=== PATIENT | male | born 1950 | race Caucasian/White ===

== ENCOUNTER 2018-03-19 12:01 | Observation (INO) | payer MEDICARE ==
[2018-03-19] MEDS ORDERED: Nitroglycerin 0.4 MG TAB (25 Tab Bottle) ONE (12:19)
[2018-03-19] MEDS ORDERED: Heparin 10,000 UNITS/1 ML VIAL ONE (12:23)
[2018-03-19 12:34] LABS: #Eosinphils 0.1 thou/uL (0.0-0.7); #Lymphocytes 1.4 thou/uL (1.20-3.40); #Monocytes 1.3 thou/uL (0.11-0.59); #Neutrophils 10.9 thou/uL (1.40-6.50); %Basophils 0.3 % (0.0-1.0); %Eosinophils 0.6 % (0.0-10.0); %Lymphocytes 10.2 % (21.0-51.0); %Monocytes 9.7 % (0.0-10.0); %Neutrophils 79.2 % (42.0-75.0); Mean Corpuscular HGB CONC 32.7 g/dL (32.0-36.0); Mean Corpuscular Hemoglobin 27.8 pg (27.0-31.0); Mean Platelet Volume 9.3 fL (7.4-10.4); Platelet Count 247 thou/uL (130-400); RBC Distribution Width 14.3 % (11.5-14.5); Red Blood Cell (RBC) Count 5.76 mill/uL (4.70-6.10); White Blood Cell (WBC) Count 13.8 thou/uL (4.8-10.8)
[2018-03-19 13:00] LABS: ALT (SGPT) 17 U/L (8-55); AST (SGOT) 14 U/L (5-34); Albumin 4.1 g/dL (3.4-4.8); Alkaline Phosphatase 76 U/L (40-150); Anion Gap 11 mmol/L (10-20); BUN (Urea Nitrogen) 21 mg/dL (8.4-25.7); Bilirubin, Total 0.7 mg/dL (0.2-1.2); CK (CPK) 49 U/L (30-200); Calc. Creatinine Clearance 0 mL/min (70-130); Calcium 9.9 mg/dL (7.8-10.44); Carbon Dioxide 24 mmol/L (23-31); Chloride 103 mmol/L (98-107); Estimated GFR-MDRD 39; Globulin 3.2 g/dL (2.4-3.5); Glucose 160 mg/dL (80-115); Potassium 4.4 mmol/L (3.5-5.1); Protein, Total 7.3 g/dL (5.8-8.1); Sodium 134 mmol/L (136-145)
[2018-03-19 13:01] LABS: Troponin I Less than 0.010 ng/mL (< 0.028)
--- NOTE | 2018-03-19 13:45 | RAD ---
RADIOGRAPH CHEST 1 VIEW: HISTORY: 67-year-old male with acute chest pain. FINDINGS: There are no air space densities, pulmonary edema, pneumothorax, or cardiomegaly. The lateral costop hrenic angles are sharp. IMPRESSION: No acute cardiopulmonary findings. pavel [] POS: [facility]
--- NOTE | 2018-03-19 15:30 | CT ---
CTA THORAX UTILIZING IV CONTRAST AND 3D REFORMATTED IMAGING; Date: 03/19/18 INDICATION: Hypertension and chest pain. FINDINGS: No central or segmental pulmonary embolus is evident. There are calcified lymph nodes in the mediasti num. There are mild to moderate calcifications involving the thoracic aorta. There is bibasilar atelectasis. No consolidation, pleural effusion, or pneumothorax is evident. There is a small hiatal hernia. Visualized liver, pancreas, and spleen appear within normal limits. No definite acute osseous abnormality is evident. There is scattered degenerative and osteoarthritic change. IMPRESSION: No central or segmental pulmonary embolus demonstrated. POS: [facility]
[2018-03-19 16:22] LABS: Troponin I Less than 0.010 ng/mL (< 0.028)
[2018-03-19] MEDS ORDERED: Iopamidol 370 76% 100 ML VIAL ONE (16:25)
[2018-03-19] MEDS ORDERED: Ondansetron PF 4 MG/2 ML Vial IVP PRN (16:48)
[2018-03-19] MEDS ORDERED: Acetaminophen 325 MG TAB PO PRN (16:48)
[2018-03-19] MEDS ORDERED: Acetaminophen 650 MG Suppository PR PRN (16:48)
[2018-03-19] MEDS ORDERED: Ondansetron ODT 4 MG TAB PO PRN (16:48)
[2018-03-19] MEDS ORDERED: Enoxaparin Sodium 30 MG/0.3 ML SYRINGE SC SCH (16:48)
[2018-03-19 16:57] VITALS: BMI 33.2
[2018-03-19 17:55] LABS: Troponin I Less than 0.010 ng/mL (< 0.028)
[2018-03-19] MEDS: Carvedilol 6.25 MG TAB PO SCH (18:09)
[2018-03-19 19:26] LABS: Troponin I Less than 0.010 ng/mL (< 0.028)
[2018-03-19] MEDS ORDERED: Nitroglycerin 2% Ointment 1 INCH/1 GM Packet TOP SCH (22:00)
[2018-03-20 01:00] LABS: CKMB 1.1 ng/mL (0-6.6); Troponin I Less than 0.010 ng/mL (< 0.028)
[2018-03-20] MEDS ORDERED: Enoxaparin Sodium 30 MG/0.3 ML SYRINGE SC SCH (02:15)
[2018-03-20 05:25] LABS: #Eosinphils 0.2 thou/uL (0.0-0.7); #Lymphocytes 1.4 thou/uL (1.20-3.40); #Neutrophils 4.7 thou/uL (1.40-6.50); %Basophils 0.4 % (0.0-1.0); %Eosinophils 3.4 % (0.0-10.0); %Monocytes 13.9 % (0.0-10.0); %Neutrophils 63.3 % (42.0-75.0); Hemoglobin 14.5 g/dL (14.0-18.0); Mean Corpuscular HGB CONC 32.1 g/dL (32.0-36.0); Mean Corpuscular Hemoglobin 27.7 pg (27.0-31.0); Mean Corpuscular Volume 86.3 fL (78.0-98.0); Mean Platelet Volume 9.2 fL (7.4-10.4); Platelet Count 205 thou/uL (130-400); RBC Distribution Width 14.2 % (11.5-14.5); Red Blood Cell (RBC) Count 5.22 mill/uL (4.70-6.10); White Blood Cell (WBC) Count 7.4 thou/uL (4.8-10.8)
[2018-03-20 05:38] LABS: Anion Gap 10 mmol/L (10-20); BUN (Urea Nitrogen) 26 mg/dL (8.4-25.7); Calc. Creatinine Clearance 58 mL/min (70-130); Calcium 9.3 mg/dL (7.8-10.44); Carbon Dioxide 26 mmol/L (23-31); Chloride 104 mmol/L (98-107); Estimated GFR-MDRD 34; Glucose 115 mg/dL (80-115); Potassium 4.4 mmol/L (3.5-5.1); Sodium 136 mmol/L (136-145)
[2018-03-20 08:12] VITALS: BP 131/76; TEMP 98.9
[2018-03-20] MEDS ORDERED: Prevnar 13-Val Conj/PF 0.5 ML SYRINGE IM ONE (09:00)
[2018-03-20] MEDS: Carvedilol 6.25 MG TAB PO SCH ×2 (10:43→10:46)
[2018-03-20] MEDS ORDERED: Lisinopril 20 MG TAB PO SCH (12:00)
--- NOTE | 2018-03-21 07:50 | DIS ---
DATE OF ADMISSION: 03/19/2018 DATE OF DISCHARGE: 03/20/2018 PRIMARY CARE PHYSICIAN: Dr. Thornton. DISCHARGE DIAGNOSES: 1. Chest pain. 2. Left shoulder pain. 3. Equivocal EKG. 4. History of hypertension. 5. History of gout. 6. History of gastroesophageal reflux disease. HISTORY: The patient is a 67-year-old male with a history of hypertension. The patient presented to the emergency department complaining of some pain in his left chest and left shoulder area, that was generally dull. Seemed to be worse when lying on his left side. His initial workup was notable for some nonspecific ST elevations and changes, initially concerning for possibility of pericarditis. The patient had substantially elevated blood pressure and tachycardia. His initially blood pressure was documented at 184/150 with pulse of 118 and subsequent 117/74, pulse 111. By the time he left the emergency department, he was 129/74 with a pulse of 90. The patient had received 2 sublingual nitroglycerin, aspirin, and 500 mL of fluid bolus. HOSPITAL COURSE: The patient was admitted to the hospital and he had serial cardiac isoenzymes, which were all negative. He had persistent telemetry monitoring, which was negative. His BP ranged from 105/67 to 131/76. The patient's labs also notable for a creatinine of 1.74 with subsequent of 1.96. The patient reported a baseline of around 1.8. CT angiogram of the chest was unremarkable. The following morning, the patient's vital signs were stable. He reports he has absolutely no chest pain at all and his shoulder is improved, although he has some chronic pain related to that shoulder. He feels like he is at his baseline. I had a long discussion with the patient and his . The patient does not want to stay in the hospital throughout the day today. I did explain the findings of the nonspecific changes on the EKG, which could be concerning for possible occlusive disease versus pericarditis. I recommended the patient have a stress test and echocardiogram and a Cardiology consultation. The patient reported that he had been under a significant amount of stress at work and been working extremely long hours and he believes that his symptoms are likely related to that. The patient strongly prefers to go home and have outpatient followup. We discussed the risks and benefits at length and I believe the patient had fully understand those as thus his . I believe, he is appropriate to make that decision without having to sign out against medical advice. He understands the need for fairly immediate followup. I have recommended he continues on the aspirin. I believe, he is safe to continue with his lisinopril and I will give him nitroglycerin. He is strongly encouraged to follow up should he has any recurrence of symptoms and should he require the nitroglycerin. Otherwise, he understands that he is to call his PCP, Dr. Thornton in [place] [employer], and set up outpatient echocardiogram and stress test as soon as reasonably possible. PHYSICAL EXAMINATION: On the day of discharge; VITAL SIGNS: Temperature is 98.9, pulse 80, respirations 16, O2 saturation 98% on room air, and BP 131/76. GENERAL: The patient is awake, alert, oriented, pleasant, and cooperative. HEART: His heart is regular rate and rhythm. There are no rubs. LUNGS: Clear to auscultation bilaterally. ABDOMEN: Benign. EXTREMITIES: Warm and dry without edema. DISPOSITION: The patient is discharged to home. DIET: He is to be on a heart healthy diet. ACTIVITY: His activity level is as tolerated. MEDICATIONS: He will continue all of his usual home medications. I will add sublingual nitroglycerin 0.4 mg q.5 minutes p.r.n. chest pain. We will also add colchicine 0.6 mg p.o. daily for the small possibility the patient may be having some gout related pericarditis. Again, I discussed the potential for the side effects of these medications and the potential risk for pericarditis given his history of gout. He is adamant that his gout is fairly minimal and rarely gives him problems. He is generally well controlled making pericarditis related to that less likely. He also has complete resolution of his symptoms without intervention and he has no evidence of firm rubs on his exam. The patient is not a good candidate for high-dose antiinflammatories given his renal function. Apparently, it would be logistically very challenging to get an echocardiogram done on the patient timely today at this facility. Therefore, he understands the need to follow up and gets this done promptly as an outpatient. I have reviewed his CT scan personally and I see no evidence of any significant pericardial effusion and no real evidence of pericardial inflammation. The patient understands he is to return to the emergency department should he have any problems prior to the time of his followup with his PCP. Job ID: [id number]
--- NOTE | 2018-03-21 11:29 | PDOC.EVN ---
Event Note - Event Note Event Note: Discussed his case with Dr. Thornton. She is aware of his workup here and the need to set up the outpatient echo and stress test.
--- NOTE | 2018-03-26 14:19 | EKG ---
Test Reason : Blood Pressure : / mmHG Vent. Rate : 110 BPM Atrial Rate : 110 BPM P-R Int : 150 ms QRS Dur : 078 ms QT Int : 314 ms P-R-T Axes : 040 -14 044 degrees QTc Int : [address] elevation consider inferolateral injury or acute infarct Abnormal ECG No reciprocal changes Diffuse ND depression, consider pericarditis Confirmed by REGGIE WALKER MD ([id number]), supervising editor news reel IRVIN CERVANTES ([id number]) on 03/26/2018 2:19:14 PM Referred By: Confirmed By:REGGIE WALKER MD
--- NOTE | 2018-03-26 14:19 | EKG ---
Test Reason : Blood Pressure : / mmHG Vent. Rate : 116 BPM Atrial Rate : 116 BPM P-R Int : 154 ms QRS Dur : 078 ms QT Int : 310 ms P-R-T Axes : 055 -04 034 degrees QTc Int : 430 ms Sinus tachycardia Possible Acute pericarditis Abnormal ECG #[address] elevation/LA Confirmed by AARON BOWENS, REGGIE ([id number]), content editor IRVIN CERVANTES ([id number]) on 03/26/2018 2:19:27 PM Referred By: Confirmed By:REGGIE WALKER MD
--- NOTE | 2018-03-26 14:19 | EKG ---
Test Reason : Blood Pressure : / mmHG Vent. Rate : 097 BPM Atrial Rate : 097 BPM P-R Int : 152 ms QRS Dur : 078 ms QT Int : 328 ms P-R-T Axes : 051 -04 031 degrees QTc Int : 416 ms Normal sinus rhythm Acute pericarditis Abnormal ECG Diffuse MT depression Confirmed by AARON BOWENS, REGGIE ([id number]), photo editor IRVIN CERVANTES ([id number]) on 03/26/2018 2:19:51 PM Referred By: Confirmed By:REGGIE WALKER MD
== END 2018-03-20 12:29 | disposition home or self-care (01) ==
LOC: ERS 12:01 → 2SW 16:47
PROVIDERS: ADMIT Internal Medicine Infectious Disease; ATTEND Internal Medicine Infectious Disease
DX: R07.9 Chest pain, unspecified (principal); M25.512 Pain in left shoulder; I10 Essential (primary) hypertension; M10.9 Gout, unspecified; K21.9 Gastro-esophageal reflux disease without esophagitis; Z79.82 Long term (current) use of aspirin; Z79.899 Other long term (current) drug therapy
CPT/HCPCS: 71045; 71275; 80048; 80053; 82550; 82553 ×3; 83735; 84484 ×3; 85025 ×2; 85379; 90662; 93005; 96372; 99285; G0008; G0378 ×2; 36415; 90471; 96360; 96361; J1644; J1650

== ENCOUNTER 2020-07-11 22:01 | Inpatient (IN) | payer MEDICARE ==
[2020-07-11] MEDS ORDERED: Nitroglycerin 2% Ointment 1 INCH/1 GM Packet ONE (22:44)
[2020-07-11] MEDS ORDERED: Nitroglycerin 0.4 MG TAB 1 EACH ONE (22:44)
[2020-07-11 22:57] LABS: #Basophils 0.1 thou/uL (0.0-0.2); #Eosinphils 0.2 thou/uL (0.0-0.7); #Lymphocytes 1.7 thou/uL (1.20-3.40); #Monocytes 1.1 thou/uL (0.11-0.59); #Neutrophils 8.9 thou/uL (1.40-6.50); %Basophils 0.7 % (0.0-1.0); %Eosinophils 1.6 % (0.0-10.0); %Lymphocytes 13.8 % (21.0-51.0); %Monocytes 9.5 % (0.0-10.0); %Neutrophils 74.4 % (42.0-75.0); Hemoglobin 15.7 g/dL (14.0-18.0); Mean Corpuscular HGB CONC 32.4 g/dL (32.0-36.0); Mean Corpuscular Hemoglobin 27.9 pg (27.0-31.0); Mean Corpuscular Volume 86.1 fL (78.0-98.0); Mean Platelet Volume 9.6 fL (7.4-10.4); Platelet Count 210 thou/uL (130-400); RBC Distribution Width 13.6 % (11.5-14.5); Red Blood Cell (RBC) Count 5.62 mill/uL (4.70-6.10)
[2020-07-11 23:13] LABS: ALT (SGPT) 18 U/L (8-55); AST (SGOT) 16 U/L (5-34); Albumin 3.9 g/dL (3.4-4.8); Alkaline Phosphatase 71 U/L (40-110); Anion Gap 12 mmol/L (10-20); BUN (Urea Nitrogen) 23 mg/dL (8.4-25.7); Bilirubin, Total 0.4 mg/dL (0.2-1.2); Calc. Creatinine Clearance 0 mL/min (70-130); Calcium 9.5 mg/dL (7.8-10.44); Carbon Dioxide 27 mmol/L (23-31); Chloride 103 mmol/L (98-107); Globulin 3.2 g/dL (2.4-3.5); Glucose 139 mg/dL (80-115); Lipase 33 U/L (8-78); Potassium 4.1 mmol/L (3.5-5.1); Protein, Total 7.1 g/dL (5.8-8.1); Sodium 138 mmol/L (136-145)
[2020-07-11] MEDS ORDERED: Aspirin Chewable 81 MG TAB ONE (23:23)
[2020-07-11 23:34] LABS: CKMB 5.2 ng/mL (0-6.6)
[2020-07-11 23:37] LABS: Bacteria/HPF None Seen HPF (None Seen); Bilirubin Negative (Negative); Blood, Urine Trace (Negative); Clarity Clear (Clear); Glucose, Urine (Dipstick) Normal (Negative); Ketone, Urine Negative (Negative); Leukocyte Negative Leu/uL (Negative); Nitrite Negative (Negative); Protein, Urine (Dipstick) 30 mg/dL (Neg-Trace); RBC/HPF 0-3 HPF (0-3); Specific Gravity, Urine 1.015 (1.002-1.036); Squamous Epithelial 0-3 HPF (0-3); Urobilinogen Normal mg/dL (Less than 2); WBC/HPF 0-3 HPF (0-3)
[2020-07-12 00:58] LABS: PTT 33.7 sec (22.9-36.1); Prothrombin Time 13.4 sec (12.0-14.7)
[2020-07-12] MEDS ORDERED: Heparin 10,000 UNITS/ 10 ML VIAL ONE (01:16)
[2020-07-12] MEDS ORDERED: Heparin 25,000 units/D5W 500 ML ONE (01:17)
[2020-07-12] MEDS ORDERED: Morphine 2 MG/ML VIAL SLOW IVP PRN (01:32)
[2020-07-12] MEDS ORDERED: Ondansetron PF 4 MG/2 ML Vial IVP PRN (01:32)
[2020-07-12] MEDS ORDERED: Heparin 10,000 UNITS/ 10 ML VIAL SLOW IVP SCH (01:45)
[2020-07-12 03:26] VITALS: BMI 33.7
[2020-07-12 05:02] LABS: #Basophils 0.1 thou/uL (0.0-0.2); #Eosinphils 0.3 thou/uL (0.0-0.7); #Lymphocytes 2.4 thou/uL (1.20-3.40); #Monocytes 1.1 thou/uL (0.11-0.59); #Neutrophils 6.9 thou/uL (1.40-6.50); %Basophils 0.9 % (0.0-1.0); %Eosinophils 2.9 % (0.0-10.0); %Lymphocytes 22.2 % (21.0-51.0); %Monocytes 10.1 % (0.0-10.0); %Neutrophils 63.9 % (42.0-75.0); Hemoglobin 14.1 g/dL (14.0-18.0); Mean Corpuscular HGB CONC 32.7 g/dL (32.0-36.0); Mean Corpuscular Hemoglobin 28.3 pg (27.0-31.0); Mean Corpuscular Volume 86.5 fL (78.0-98.0); Mean Platelet Volume 10.3 fL (7.4-10.4); Platelet Count 193 thou/uL (130-400); RBC Distribution Width 13.5 % (11.5-14.5); Red Blood Cell (RBC) Count 4.99 mill/uL (4.70-6.10); White Blood Cell (WBC) Count 10.8 thou/uL (4.8-10.8)
[2020-07-12 05:35] LABS: Anion Gap 14 mmol/L (10-20); BUN (Urea Nitrogen) 24 mg/dL (8.4-25.7); Calc. Creatinine Clearance 47 mL/min (70-130); Calcium 8.7 mg/dL (7.8-10.44); Carbon Dioxide 24 mmol/L (23-31); Chloride 103 mmol/L (98-107); Glucose 166 mg/dL (80-115); Potassium 3.5 mmol/L (3.5-5.1); Sodium 137 mmol/L (136-145)
[2020-07-12] MEDS: Acetaminophen 325 MG TAB PO PRN ×2 (07:27→18:25)
[2020-07-12] MEDS: Nitroglycerin 2% Ointment 1 INCH/1 GM Packet TOP SCH ×3 (07:27→21:10)
[2020-07-12] MEDS ORDERED: Famotidine 20 MG TAB PO SCH (09:00)
[2020-07-12 09:34] LABS: Troponin I 4.804 ng/mL (< 0.028)
[2020-07-12] MEDS: Aspirin 81 mg Enteric Coated Tablet PO SCH (10:02)
[2020-07-12 12:50] LABS: Troponin I 6.507 ng/mL (< 0.028)
[2020-07-12] MEDS: Sodium Chloride 0.9% 1,000 ML IV SCH (14:59)
[2020-07-12 17:10] LABS: SARS-CoV-2 PCR NAA for Saliva Not Detected (NotDetected)
[2020-07-12] MEDS: Atorvastatin Calcium 40 MG TAB PO SCH (21:09)
[2020-07-13] MEDS: Heparin 25,000 units/D5W 500 ML IVPB SCH ×2 (00:02→17:09)
[2020-07-13] MEDS: hydrALAZINE 20 MG/ML VIAL SLOW IVP PRN ×2 (00:55→04:42)
[2020-07-13] MEDS: Sodium Chloride 0.9% 1,000 ML IV SCH ×2 (04:35→17:19)
[2020-07-13 04:39] LABS: #Basophils 0.1 thou/uL (0.0-0.2); #Eosinphils 0.2 thou/uL (0.0-0.7); #Lymphocytes 1.7 thou/uL (1.20-3.40); #Monocytes 1.2 thou/uL (0.11-0.59); #Neutrophils 7.2 thou/uL (1.40-6.50); %Basophils 0.6 % (0.0-1.0); %Lymphocytes 16.3 % (21.0-51.0); %Monocytes 11.2 % (0.0-10.0); Hemoglobin 14.5 g/dL (14.0-18.0); Mean Corpuscular HGB CONC 31.5 g/dL (32.0-36.0); Mean Corpuscular Hemoglobin 26.9 pg (27.0-31.0); Mean Corpuscular Volume 85.5 fL (78.0-98.0); Mean Platelet Volume 9.9 fL (7.4-10.4); Platelet Count 183 thou/uL (130-400); RBC Distribution Width 13.8 % (11.5-14.5); White Blood Cell (WBC) Count 10.3 thou/uL (4.8-10.8)
[2020-07-13 05:00] LABS: Anion Gap 14 mmol/L (10-20); BUN (Urea Nitrogen) 19 mg/dL (8.4-25.7); Calc. Creatinine Clearance 59 mL/min (70-130); Calcium 8.5 mg/dL (7.8-10.44); Carbon Dioxide 20 mmol/L (23-31); Cardiac Risk 4.8 (Less than 4.5); Chloride 106 mmol/L (98-107); Cholesterol 162 mg/dl (< 200 Desired); Glucose 107 mg/dL (80-115); HDL Cholesterol 34 mg/dL (>60 Neg Risk); LDL Cholesterol, Calculated 107 mg/dL; Potassium 3.7 mmol/L (3.5-5.1); Sodium 136 mmol/L (136-145); Triglycerides 104 mg/dL (Less than 150)
[2020-07-13] MEDS: Nitroglycerin 2% Ointment 1 INCH/1 GM Packet TOP SCH ×3 (06:10→22:19)
[2020-07-13 07:44] LABS: Critical Call Chem Troponin I @DECREASING; Troponin I 2.556 ng/mL (< 0.028)
[2020-07-13] MEDS: Aspirin 81 mg Enteric Coated Tablet PO SCH (08:52)
[2020-07-13] MEDS ORDERED: Amlodipine 5 MG TAB PO SCH ×2 (09:00→11:30)
[2020-07-13] MEDS: Acetaminophen 325 MG TAB PO PRN ×2 (09:09→13:19)
[2020-07-13] MEDS ORDERED: Aspirin 81 mg Enteric Coated Tablet PO SCH (09:30)
[2020-07-13] MEDS ORDERED: Gabapentin 300 MG CAP PO SCH (09:30)
[2020-07-13 12:48] LABS: Critical Call Chem Troponin I RESULT DECREASING
[2020-07-13 13:10] LABS: CKMB 10.6 ng/mL (0-6.6)
[2020-07-13] MEDS: cloNIDine 0.1 MG TAB PO PRN (13:19)
[2020-07-13] MEDS: Carvedilol 6.25 MG TAB PO SCH (17:05)
[2020-07-13] MEDS: Atorvastatin Calcium 40 MG TAB PO SCH (22:19)
[2020-07-14 05:21] LABS: #Eosinphils 0.3 thou/uL (0.0-0.7); #Lymphocytes 1.8 thou/uL (1.20-3.40); #Monocytes 1.1 thou/uL (0.11-0.59); #Neutrophils 6.3 thou/uL (1.40-6.50); %Basophils 0.3 % (0.0-1.0); %Eosinophils 3.5 % (0.0-10.0); %Lymphocytes 19.1 % (21.0-51.0); %Monocytes 11.7 % (0.0-10.0); %Neutrophils 65.4 % (42.0-75.0); Hemoglobin 13.8 g/dL (14.0-18.0); Mean Corpuscular HGB CONC 32.9 g/dL (32.0-36.0); Mean Corpuscular Hemoglobin 28.2 pg (27.0-31.0); Mean Corpuscular Volume 85.7 fL (78.0-98.0); Mean Platelet Volume 9.9 fL (7.4-10.4); Platelet Count 184 thou/uL (130-400); RBC Distribution Width 13.5 % (11.5-14.5); White Blood Cell (WBC) Count 9.6 thou/uL (4.8-10.8)
[2020-07-14 05:49] LABS: Anion Gap 13 mmol/L (10-20); BUN (Urea Nitrogen) 19 mg/dL (8.4-25.7); Calc. Creatinine Clearance 55 mL/min (70-130); Calcium 8.4 mg/dL (7.8-10.44); Carbon Dioxide 24 mmol/L (23-31); Chloride 105 mmol/L (98-107); Glucose 103 mg/dL (80-115); Magnesium 1.9 mg/dL (1.6-2.6); Potassium 3.8 mmol/L (3.5-5.1); Sodium 138 mmol/L (136-145)
[2020-07-14] MEDS ORDERED: Sodium Chloride 0.9% 1,000 ML IV SCH ×2 (06:00→12:00)
[2020-07-14] MEDS: Nitroglycerin 2% Ointment 1 INCH/1 GM Packet TOP SCH ×3 (06:10→22:00)
[2020-07-14] MEDS ORDERED: Magnesium Sulfate 2 GM in Sodium Chloride 0.9% 100 ML IVPB SCH (08:00)
[2020-07-14] MEDS ORDERED: Potassium Chloride 20 MEQ TAB PO SCH (08:00)
[2020-07-14] MEDS: Aspirin 325 mg Enteric Coated Tablet PO SCH (08:27)
[2020-07-14] MEDS: Amlodipine 10 MG TAB PO SCH (08:27)
[2020-07-14] MEDS: Carvedilol 6.25 MG TAB PO SCH ×2 (08:28→18:07)
[2020-07-14] MEDS: Acetaminophen 325 MG TAB PO PRN (08:34)
[2020-07-14] MEDS: Sodium Chloride 0.9% 1,000 ML IV SCH ×3 (08:35→22:00)
[2020-07-14] MEDS: Gabapentin 300 MG CAP PO SCH (08:36)
[2020-07-14] MEDS ORDERED: Communication Order-Pharmacy FS SCH (16:00)
[2020-07-14] MEDS: Heparin 25,000 units/D5W 500 ML IVPB SCH (18:10)
[2020-07-14] MEDS: Atorvastatin Calcium 40 MG TAB PO SCH (20:02)
[2020-07-14] MEDS: cloNIDine 0.1 MG TAB PO PRN (20:02)
[2020-07-15 04:34] LABS: #Basophils 0.1 thou/uL (0.0-0.2); #Eosinphils 0.3 thou/uL (0.0-0.7); #Lymphocytes 1.6 thou/uL (1.20-3.40); #Monocytes 0.8 thou/uL (0.11-0.59); #Neutrophils 4.4 thou/uL (1.40-6.50); %Eosinophils 4.8 % (0.0-10.0); %Lymphocytes 22.7 % (21.0-51.0); %Monocytes 11.2 % (0.0-10.0); %Neutrophils 60.3 % (42.0-75.0); Hemoglobin 12.9 g/dL (14.0-18.0); Mean Corpuscular HGB CONC 31.5 g/dL (32.0-36.0); Mean Corpuscular Hemoglobin 27.3 pg (27.0-31.0); Mean Corpuscular Volume 86.6 fL (78.0-98.0); Mean Platelet Volume 9.7 fL (7.4-10.4); Platelet Count 167 thou/uL (130-400); RBC Distribution Width 13.7 % (11.5-14.5); Red Blood Cell (RBC) Count 4.74 mill/uL (4.70-6.10); White Blood Cell (WBC) Count 7.2 thou/uL (4.8-10.8)
[2020-07-15 04:50] LABS: Anion Gap 9 mmol/L (10-20); BUN (Urea Nitrogen) 22 mg/dL (8.4-25.7); Calc. Creatinine Clearance 51 mL/min (70-130); Carbon Dioxide 26 mmol/L (23-31); Chloride 106 mmol/L (98-107); Glucose 100 mg/dL (80-115); Potassium 3.8 mmol/L (3.5-5.1); Sodium 137 mmol/L (136-145)
[2020-07-15] MEDS: Sodium Chloride 0.9% 1,000 ML IV SCH ×3 (05:50→17:00)
[2020-07-15] MEDS: Aspirin 325 mg Enteric Coated Tablet PO SCH (05:51)
[2020-07-15] MEDS: Carvedilol 6.25 MG TAB PO SCH ×2 (05:51→16:05)
[2020-07-15] MEDS: Amlodipine 10 MG TAB PO SCH (05:55)
[2020-07-15] MEDS: Gabapentin 300 MG CAP PO SCH (05:56)
[2020-07-15] MEDS: Nitroglycerin 2% Ointment 1 INCH/1 GM Packet TOP SCH ×3 (06:15→14:47)
[2020-07-15] MEDS ORDERED: Aspirin 325 mg Enteric Coated Tablet PO SCH (06:41)
[2020-07-15] MEDS: Aspirin 81 mg Enteric Coated Tablet PO SCH (08:53)
[2020-07-15] MEDS: hydrALAZINE 10 MG TAB PO SCH ×4 (08:54→20:30)
[2020-07-15] MEDS ORDERED: hydrALAZINE 25 MG TAB PO SCH (09:00)
[2020-07-15] MEDS ORDERED: Iopamidol 370 76% 100 ML VIAL ONE (09:16)
[2020-07-15 11:44] LABS: Anion Gap 9 mmol/L (10-20); BUN (Urea Nitrogen) 20 mg/dL (8.4-25.7); Calc. Creatinine Clearance 55 mL/min (70-130); Calcium 8.2 mg/dL (7.8-10.44); Carbon Dioxide 25 mmol/L (23-31); Chloride 108 mmol/L (98-107); Glucose 100 mg/dL (80-115); Potassium 4.1 mmol/L (3.5-5.1); Sodium 138 mmol/L (136-145)
[2020-07-15] MEDS ORDERED: Nitroglycerin 100MG/250ML BOT 250 ML ONE (12:08)
[2020-07-15] MEDS ORDERED: Lidocaine 1% (PF) 30 ML VIAL ONE (12:08)
[2020-07-15] MEDS ORDERED: Adenosine 6 MG/2 ML VIAL ONE (12:08)
[2020-07-15] MEDS ORDERED: Verapamil 5 MG/2 ML VIAL ONE (12:08)
[2020-07-15] MEDS ORDERED: Midazolam HCl 2 mg/2 ml Vial ONE (12:44)
[2020-07-15] MEDS ORDERED: Fentanyl 100 MCG/2 ML VIAL ONE (12:44)
[2020-07-15] MEDS ORDERED: Acetaminophen/Codeine 30-300mg Tablet PO PRN ×2 (13:08)
[2020-07-15] MEDS ORDERED: Sodium Chloride 0.9% 200 ML IV PRN (13:08)
[2020-07-15] MEDS ORDERED: Nitroglycerin 0.4 MG TAB (25 Tab Bottle) SL PRN (13:08)
[2020-07-15] MEDS ORDERED: Sodium Chloride 0.9% 1,000 ML IV SCH (13:15)
[2020-07-15] MEDS: cloNIDine 0.1 MG TAB PO PRN (14:46)
[2020-07-15] MEDS ORDERED: Heparin 25,000 units/D5W 500 ML IVPB SCH (16:00)
[2020-07-15] MEDS ORDERED: Diazepam 5 MG TAB PO PRN (16:09)
[2020-07-15] MEDS ORDERED: Communication Order-Pharmacy FS SCH (16:09)
[2020-07-15] MEDS: Atorvastatin Calcium 40 MG TAB PO SCH (20:29)
[2020-07-16] MEDS: Sodium Chloride 0.9% 1,000 ML IV SCH ×2 (00:56→10:28)
[2020-07-16] MEDS: Nitroglycerin 2% Ointment 1 INCH/1 GM Packet TOP SCH ×3 (00:57→10:29)
[2020-07-16 04:46] LABS: #Eosinphils 0.2 thou/uL (0.0-0.7); #Lymphocytes 1.2 thou/uL (1.20-3.40); #Monocytes 0.9 thou/uL (0.11-0.59); #Neutrophils 5.1 thou/uL (1.40-6.50); %Basophils 0.6 % (0.0-1.0); %Eosinophils 2.8 % (0.0-10.0); %Lymphocytes 16.5 % (21.0-51.0); %Monocytes 11.6 % (0.0-10.0); %Neutrophils 68.5 % (42.0-75.0); Hemoglobin 13.2 g/dL (14.0-18.0); Mean Corpuscular HGB CONC 32.8 g/dL (32.0-36.0); Mean Corpuscular Hemoglobin 28.2 pg (27.0-31.0); Mean Corpuscular Volume 86.1 fL (78.0-98.0); Mean Platelet Volume 10.2 fL (7.4-10.4); Platelet Count 169 thou/uL (130-400); RBC Distribution Width 13.6 % (11.5-14.5); Red Blood Cell (RBC) Count 4.67 mill/uL (4.70-6.10); White Blood Cell (WBC) Count 7.4 thou/uL (4.8-10.8)
[2020-07-16 05:09] LABS: Anion Gap 9 mmol/L (10-20); BUN (Urea Nitrogen) 18 mg/dL (8.4-25.7); Calc. Creatinine Clearance 61 mL/min (70-130); Calcium 7.9 mg/dL (7.8-10.44); Carbon Dioxide 23 mmol/L (23-31); Chloride 110 mmol/L (98-107); Glucose 97 mg/dL (80-115); Potassium 3.9 mmol/L (3.5-5.1); Sodium 138 mmol/L (136-145)
[2020-07-16] MEDS: Carvedilol 6.25 MG TAB PO SCH (05:11)
[2020-07-16] MEDS ORDERED: EPINEPHrine 1 MG/ML AMP ONE (07:38)
[2020-07-16] MEDS ORDERED: Bupivacaine PF 0.5% 30 ML VIAL ONE (07:38)
[2020-07-16] MEDS ORDERED: Albumin 5% 500 ML ONE (07:38)
[2020-07-16] MEDS ORDERED: Dexamethasone 4 mg/ml Vial ONE (08:12)
[2020-07-16] MEDS ORDERED: Heparin 10,000 UNITS/1 ML VIAL 30,000 UNITS in Sodium Chloride 0.9% 1,000 ML FS SCH (08:45)
[2020-07-16] MEDS ORDERED: Midazolam HCl 2 mg/2 ml Vial ONE (09:14)
[2020-07-16] MEDS ORDERED: Dexmedetomidine 200 MCG/2 ML VIAL ONE (09:14)
[2020-07-16] MEDS ORDERED: Midazolam HCl 5 mg/5 ml Vial ONE (09:14)
[2020-07-16] MEDS ORDERED: Fentanyl 100 MCG/2 ML VIAL ONE (09:14)
[2020-07-16] MEDS ORDERED: Vecuronium 10 MG VIAL ONE ×3 (09:14→10:13)
[2020-07-16] MEDS ORDERED: CEFAZOLIN 2 GM in Premix Bag 1 BAG IVPB SCH (10:00)
[2020-07-16] MEDS ORDERED: Nitroglycerin 50 MG/250 ML BOT ONE (10:13)
[2020-07-16] MEDS ORDERED: ePHEDrine 50 MG/ML VIAL ONE (10:13)
[2020-07-16] MEDS ORDERED: Cardioplegic Soln 1,000 ML BAG ONE (10:13)
[2020-07-16] MEDS ORDERED: Dexamethasone 20 MG/5 ML VIAL ONE (10:13)
[2020-07-16] MEDS ORDERED: Ondansetron PF 4 MG/2 ML Vial ONE (10:13)
[2020-07-16] MEDS ORDERED: Aminocaproic Acid 5 GM/20 ML VIAL ONE (10:13)
[2020-07-16] MEDS ORDERED: PHENYLEPHRINE-NS 100 MCG/ML 10 ML SYRINGE ONE (10:13)
[2020-07-16] MEDS ORDERED: Lidocaine 1% PF 5 ML VIAL ONE ×2 (10:13)
[2020-07-16] MEDS ORDERED: Calcium Chloride 1 GM/10 ML Abboject SYRINGE ONE (10:13)
[2020-07-16] MEDS ORDERED: Heparin 30,000 units/30 ml VIAL ONE (10:13)
[2020-07-16] MEDS ORDERED: Ketorolac Tromethamine 30 MG/ML VIAL ONE (10:13)
[2020-07-16] MEDS ORDERED: Magnesium Sulfate 1 GM/2 ML VIAL ONE (10:13)
[2020-07-16] MEDS ORDERED: Sodium Bicarb 50 MEQ/50 ML Abboject 8.4% SYRINGE ONE (10:13)
[2020-07-16] MEDS ORDERED: Heparin 5,000 UNITS/ML VIAL ONE (10:13)
[2020-07-16] MEDS ORDERED: Papaverine 60 MG/2 ML VIAL ONE (10:13)
[2020-07-16] MEDS ORDERED: Lidocaine 2% PF 100 mg/5 ml Syringe ONE (10:13)
[2020-07-16] MEDS ORDERED: Potassium Chloride 60 MEQ/30 ML VIAL ONE (10:13)
[2020-07-16] MEDS ORDERED: Mannitol 12.5 GM/50 ML ONE (10:13)
[2020-07-16] MEDS ORDERED: Thrombin 5000 UNITS/5 ML VIAL ONE (10:13)
[2020-07-16] MEDS: Gabapentin 300 MG CAP PO SCH (10:28)
[2020-07-16] MEDS: hydrALAZINE 10 MG TAB PO SCH ×2 (10:28→13:26)
[2020-07-16] MEDS: Amlodipine 10 MG TAB PO SCH (10:28)
[2020-07-16] MEDS: Aspirin 81 mg Enteric Coated Tablet PO SCH (10:28)
[2020-07-16] MEDS ORDERED: Potassium Chloride 20 MEQ/100 ML PREMIX BAG IVPB PRN (14:11)
[2020-07-16] MEDS ORDERED: Acetaminophen 325 MG TAB PO PRN (14:11)
[2020-07-16] MEDS ORDERED: traMADol HCl 50 MG TAB PO PRN ×2 (14:11)
[2020-07-16] MEDS ORDERED: Bisacodyl 10 MG SUPP PR PRN (14:11)
[2020-07-16] MEDS ORDERED: Promethazine HCl 25 MG/ML VIAL IM PRN (14:11)
[2020-07-16] MEDS ORDERED: Hetastarch 6% 500 ML 500 ML IVPB PRN (14:11)
[2020-07-16] MEDS ORDERED: Bisacodyl 5 MG TAB PO PRN (14:11)
[2020-07-16] MEDS ORDERED: Morphine 2 MG/ML VIAL SLOW IVP PRN (14:11)
[2020-07-16] MEDS ORDERED: Mag-Al 1200 mg/1200 mg/30 ML UDCUP PO PRN (14:11)
[2020-07-16] MEDS ORDERED: Fentanyl 100 MCG/2 ML VIAL SLOW IVP PRN (14:11)
[2020-07-16] MEDS ORDERED: Ondansetron PF 4 MG/2 ML Vial IVP PRN (14:11)
[2020-07-16] MEDS ORDERED: Guaifenesin DM 100-10/5 ML UDCUP PO PRN (14:11)
[2020-07-16] MEDS ORDERED: Norepinephrine 8 MG/0.9% NS 250 ML IVPB PRN (14:11)
[2020-07-16] MEDS ORDERED: Nitroglycerin 50 MG/250 ML BOT 250 ML IVPB PRN (14:11)
[2020-07-16] MEDS ORDERED: Magnesium 2 GM/50 ML 2 GM in Premix Bag 1 BAG IVPB SCH (14:15)
[2020-07-16] MEDS ORDERED: D5 1/2 NS w/20 mEq KCL 1,000 ML IV SCH (14:15)
[2020-07-16] MEDS ORDERED: Dextrose 5% in Water 1,000 ML IV PRN (14:30)
[2020-07-16] MEDS ORDERED: Dextrose 50% Abboject 50 ML SYRINGE SLOW IVP PRN (14:30)
[2020-07-16] MEDS: Insulin Regular 300 UNITS/3 ML VIAL SC PRN ×4 (14:51→23:51)
[2020-07-16 15:04] LABS: INR-International Normal Ratio 1.3; PTT 31.9 sec (22.9-36.1); Prothrombin Time 16.5 sec (12.0-14.7)
[2020-07-16 15:14] LABS: Band 22 % (5-11); Lymphocytes 7 % (21-51); MDiff Complete? YES; Mean Corpuscular HGB CONC 32.6 g/dL (32.0-36.0); Mean Corpuscular Hemoglobin 28.4 pg (27.0-31.0); Mean Platelet Volume 10.1 fL (7.4-10.4); Monocytes 6 % (0-10); Neutrophil 64 % (42-75); Platelet Count 180 thou/uL (130-400); Platelet Morphology Comment Appears Adequate; Polychromasia SLIGHT = 2-3 cells (100X) (0-2/hpf); RBC Distribution Width 13.6 % (11.5-14.5); Reactive Lymphocytes 1 % (0-10); Red Blood Cell (RBC) Count 4.58 mill/uL (4.70-6.10); White Blood Cell (WBC) Count 25.9 thou/uL (4.8-10.8)
[2020-07-16 15:21] LABS: Anion Gap 12 mmol/L (10-20); BUN (Urea Nitrogen) 18 mg/dL (8.4-25.7); Calc. Creatinine Clearance 54 mL/min (70-130); Calcium 7.4 mg/dL (7.8-10.44); Carbon Dioxide 21 mmol/L (23-31); Chloride 110 mmol/L (98-107); Glucose 158 mg/dL (80-115); Potassium 5.9 mmol/L (3.5-5.1); Sodium 137 mmol/L (136-145)
[2020-07-16] MEDS: CEFAZOLIN 2 GM in Premix Bag 1 BAG IVPB SCH ×2 (16:49→23:51)
[2020-07-16] MEDS ORDERED: Dextrose 5 %-0.45 % NaCl 1,000 ML IV SCH (17:00)
[2020-07-16] MEDS: Fentanyl 100 MCG/2 ML VIAL SLOW IVP PRN ×3 (17:04→23:59)
[2020-07-16] MEDS: Atorvastatin Calcium 40 MG TAB PO SCH (19:54)
[2020-07-16 20:03] LABS: Hemoglobin 12.5 g/dL (14.0-18.0)
[2020-07-16 20:17] LABS: Potassium 4.5 mmol/L (3.5-5.1)
[2020-07-16] MEDS ORDERED: Famotidine/PF 20 mg/2ml Vial SLOW IVP SCH (21:00)
[2020-07-16] MEDS: hydrALAZINE 20 MG/ML VIAL SLOW IVP PRN (23:10)
[2020-07-17 03:19] LABS: #Lymphocytes 0.9 thou/uL (1.20-3.40); #Monocytes 1.7 thou/uL (0.11-0.59); #Neutrophils 19.5 thou/uL (1.40-6.50); %Basophils 0.2 % (0.0-1.0); %Monocytes 7.6 % (0.0-10.0); %Neutrophils 88.2 % (42.0-75.0); Hemoglobin 13.1 g/dL (14.0-18.0); Mean Corpuscular HGB CONC 32.4 g/dL (32.0-36.0); Mean Corpuscular Hemoglobin 28.1 pg (27.0-31.0); Mean Corpuscular Volume 86.6 fL (78.0-98.0); Mean Platelet Volume 10.4 fL (7.4-10.4); Platelet Count 172 thou/uL (130-400); RBC Distribution Width 13.8 % (11.5-14.5); Red Blood Cell (RBC) Count 4.65 mill/uL (4.70-6.10); White Blood Cell (WBC) Count 22.1 thou/uL (4.8-10.8)
[2020-07-17] MEDS: Fentanyl 100 MCG/2 ML VIAL SLOW IVP PRN (03:19)
[2020-07-17 03:53] LABS: Chloride 110 mmol/L (98-107)
[2020-07-17 03:54] LABS: Calcium 7.9 mg/dL (7.8-10.44); Glucose 149 mg/dL (80-115); Potassium 4.3 mmol/L (3.5-5.1); Sodium 138 mmol/L (136-145)
[2020-07-17] MEDS: Insulin Regular 300 UNITS/3 ML VIAL SC PRN (03:55)
[2020-07-17 03:56] LABS: Anion Gap 12 mmol/L (10-20); Carbon Dioxide 20 mmol/L (23-31)
[2020-07-17 03:58] LABS: Calc. Creatinine Clearance 53 mL/min (70-130)
[2020-07-17 03:59] LABS: BUN (Urea Nitrogen) 24 mg/dL (8.4-25.7)
[2020-07-17] MEDS: hydrALAZINE 20 MG/ML VIAL SLOW IVP PRN (05:02)
[2020-07-17] MEDS ORDERED: traMADol HCl 50 MG TAB PO PRN (06:51)
[2020-07-17] MEDS ORDERED: Guaifenesin DM 100-10/5 ML UDCUP PO PRN (06:51)
[2020-07-17] MEDS ORDERED: Bisacodyl 10 MG SUPP PR PRN (06:51)
[2020-07-17] MEDS ORDERED: Mag-Al 1200 mg/1200 mg/30 ML UDCUP PO PRN (06:51)
[2020-07-17] MEDS ORDERED: Milk Of Magnesia 30 ML UDCUP PO PRN (06:51)
[2020-07-17] MEDS ORDERED: Zolpidem Tartrate 5 MG TAB PO PRN (06:51)
[2020-07-17] MEDS ORDERED: Nitroglycerin 0.4 MG TAB (25 Tab Bottle) SL PRN (06:51)
[2020-07-17] MEDS ORDERED: Mineral Oil ENEMA PR PRN (06:51)
[2020-07-17] MEDS ORDERED: diphenhydrAMINE 25 MG CAP PO PRN (06:51)
[2020-07-17] MEDS ORDERED: Bisacodyl 5 MG TAB PO PRN (06:51)
[2020-07-17] MEDS: traMADol HCl 50 MG TAB PO PRN ×3 (07:43→22:20)
[2020-07-17] MEDS: Carvedilol 6.25 MG TAB PO SCH ×2 (07:45→20:27)
[2020-07-17] MEDS: Aspirin Chewable 81 MG TAB PO SCH (07:46)
[2020-07-17] MEDS: Gabapentin 300 MG CAP PO SCH (07:46)
[2020-07-17] MEDS ORDERED: Potassium Chloride 10 MEQ TAB PO SCH (08:00)
[2020-07-17] MEDS ORDERED: Magnesium 2 GM/50 ML 2 GM in Premix Bag 1 BAG IVPB SCH (09:00)
[2020-07-17] MEDS ORDERED: Furosemide 40 MG TAB PO SCH (09:00)
[2020-07-17] MEDS: Atorvastatin Calcium 40 MG TAB PO SCH (20:26)
[2020-07-18 06:24] LABS: Anion Gap 11 mmol/L (10-20); BUN (Urea Nitrogen) 33 mg/dL (8.4-25.7); Calc. Creatinine Clearance 42 mL/min (70-130); Calcium 8.1 mg/dL (7.8-10.44); Carbon Dioxide 24 mmol/L (23-31); Chloride 104 mmol/L (98-107); Glucose 133 mg/dL (80-115); Potassium 4.3 mmol/L (3.5-5.1); Sodium 135 mmol/L (136-145)
[2020-07-18] MEDS ORDERED: Allopurinol 300 MG TAB PO SCH (09:00)
[2020-07-18] MEDS ORDERED: Furosemide 40 MG TAB PO SCH (09:00)
[2020-07-18] MEDS: Potassium Chloride 10 MEQ TAB PO SCH ×2 (09:01→17:31)
[2020-07-18] MEDS: Aspirin Chewable 81 MG TAB PO SCH (09:01)
[2020-07-18] MEDS: Carvedilol 6.25 MG TAB PO SCH ×2 (09:02→21:23)
[2020-07-18] MEDS: Cholecalciferol 1,000 UNITS (25 MCG) TAB PO SCH (09:04)
[2020-07-18] MEDS: Cyanocobalamin (Vitamin B-12) 1,000 MCG TAB PO SCH (09:05)
[2020-07-18] MEDS: Gabapentin 300 MG CAP PO SCH (09:07)
[2020-07-18] MEDS: Fish Oil 1,000 MG CAP PO SCH (09:07)
[2020-07-18] MEDS: Amiodarone 450 MG, Admixture Fee 1 EACH in Dextrose 5% in Water 250 ML IVPB SCH (17:00)
[2020-07-18 17:23] LABS: ALT (SGPT) 26 U/L (8-55); AST (SGOT) 23 U/L (5-34); Albumin 3.1 g/dL (3.4-4.8); Alkaline Phosphatase 72 U/L (40-110); Bilirubin, Direct 0.4 mg/dL (0.1-0.3); Bilirubin, Total 0.7 mg/dL (0.2-1.2); Protein, Total 5.5 g/dL (5.8-8.1)
[2020-07-18 17:25] LABS: Anion Gap 11 mmol/L (10-20); BUN (Urea Nitrogen) 38 mg/dL (8.4-25.7); Calc. Creatinine Clearance 39 mL/min (70-130); Calcium 8.3 mg/dL (7.8-10.44); Carbon Dioxide 25 mmol/L (23-31); Chloride 100 mmol/L (98-107); Glucose 198 mg/dL (80-115); Magnesium 2.2 mg/dL (1.6-2.6); Potassium 4.1 mmol/L (3.5-5.1); Sodium 132 mmol/L (136-145)
[2020-07-18] MEDS: Atorvastatin Calcium 40 MG TAB PO SCH (21:23)
[2020-07-19 05:40] LABS: #Eosinphils 0.1 thou/uL (0.0-0.7); #Lymphocytes 1.5 thou/uL (1.20-3.40); #Monocytes 2.3 thou/uL (0.11-0.59); #Neutrophils 12.1 thou/uL (1.40-6.50); %Basophils 0.1 % (0.0-1.0); %Eosinophils 0.6 % (0.0-10.0); %Lymphocytes 9.4 % (21.0-51.0); %Monocytes 14.5 % (0.0-10.0); %Neutrophils 75.4 % (42.0-75.0); Mean Corpuscular HGB CONC 31.9 g/dL (32.0-36.0); Mean Corpuscular Hemoglobin 27.7 pg (27.0-31.0); Mean Corpuscular Volume 86.9 fL (78.0-98.0); Mean Platelet Volume 9.9 fL (7.4-10.4); Platelet Count 170 thou/uL (130-400); RBC Distribution Width 13.8 % (11.5-14.5); Red Blood Cell (RBC) Count 3.98 mill/uL (4.70-6.10)
[2020-07-19 05:55] LABS: Anion Gap 10 mmol/L (10-20); BUN (Urea Nitrogen) 38 mg/dL (8.4-25.7); Calc. Creatinine Clearance 46 mL/min (70-130); Calcium 8.1 mg/dL (7.8-10.44); Carbon Dioxide 24 mmol/L (23-31); Chloride 102 mmol/L (98-107); Glucose 120 mg/dL (80-115); Potassium 4.1 mmol/L (3.5-5.1); Sodium 132 mmol/L (136-145)
[2020-07-19] MEDS: Cholecalciferol 1,000 UNITS (25 MCG) TAB PO SCH (09:19)
[2020-07-19] MEDS: Fish Oil 1,000 MG CAP PO SCH (09:20)
[2020-07-19] MEDS: Cyanocobalamin (Vitamin B-12) 1,000 MCG TAB PO SCH (09:20)
[2020-07-19] MEDS: Carvedilol 6.25 MG TAB PO SCH ×2 (09:22→20:51)
[2020-07-19] MEDS: Gabapentin 300 MG CAP PO SCH (09:23)
[2020-07-19] MEDS: Aspirin Chewable 81 MG TAB PO SCH (09:24)
[2020-07-19] MEDS: Furosemide 40 MG TAB PO SCH (09:24)
[2020-07-19] MEDS ORDERED: Digoxin 0.5 MG/2 ML AMP SLOW IVP SCH (18:30)
[2020-07-19] MEDS: Atorvastatin Calcium 40 MG TAB PO SCH (20:50)
[2020-07-19] MEDS: Amiodarone 200 MG TAB PO SCH (20:51)
[2020-07-19] MEDS: traMADol HCl 50 MG TAB PO PRN (20:52)
[2020-07-20] MEDS ORDERED: Digoxin 0.5 MG/2 ML AMP SLOW IVP SCH ×2 (02:00→08:00)
[2020-07-20] MEDS ORDERED: Digoxin 0.5 MG/2 ML AMP ONE (02:13)
[2020-07-20 04:47] LABS: Anion Gap 12 mmol/L (10-20); BUN (Urea Nitrogen) 37 mg/dL (8.4-25.7); Calc. Creatinine Clearance 48 mL/min (70-130); Calcium 8.3 mg/dL (7.8-10.44); Carbon Dioxide 27 mmol/L (23-31); Chloride 101 mmol/L (98-107); Glucose 125 mg/dL (80-115); Sodium 136 mmol/L (136-145)
[2020-07-20] MEDS: Amiodarone 450 MG, Admixture Fee 1 EACH in Dextrose 5% in Water 250 ML IVPB SCH ×2 (06:19→20:51)
[2020-07-20] MEDS: Aspirin Chewable 81 MG TAB PO SCH (07:52)
[2020-07-20] MEDS ORDERED: Cepastat Lozenges 1 LOZ PO PRN (08:03)
[2020-07-20] MEDS ORDERED: Cepastat Lozenges 1 LOZ PO SCH (08:15)
[2020-07-20] MEDS: Cyanocobalamin (Vitamin B-12) 1,000 MCG TAB PO SCH (08:15)
[2020-07-20] MEDS: Carvedilol 6.25 MG TAB PO SCH ×2 (08:16→20:50)
[2020-07-20] MEDS: Fish Oil 1,000 MG CAP PO SCH (08:16)
[2020-07-20] MEDS: Gabapentin 300 MG CAP PO SCH (08:17)
[2020-07-20] MEDS: Furosemide 40 MG TAB PO SCH (08:17)
[2020-07-20] MEDS: Cholecalciferol 1,000 UNITS (25 MCG) TAB PO SCH (08:17)
[2020-07-20] MEDS: Amiodarone 200 MG TAB PO SCH ×2 (08:19→20:50)
[2020-07-20] MEDS: Atorvastatin Calcium 40 MG TAB PO SCH (20:50)
[2020-07-20] MEDS: traMADol HCl 50 MG TAB PO PRN (21:11)
[2020-07-21 04:25] LABS: #Eosinphils 0.4 thou/uL (0.0-0.7); #Lymphocytes 1.6 thou/uL (1.20-3.40); #Monocytes 1.6 thou/uL (0.11-0.59); #Neutrophils 8.3 thou/uL (1.40-6.50); %Basophils 0.3 % (0.0-1.0); %Eosinophils 3.2 % (0.0-10.0); %Lymphocytes 13.7 % (21.0-51.0); %Monocytes 13.6 % (0.0-10.0); %Neutrophils 69.2 % (42.0-75.0); Mean Corpuscular HGB CONC 33.2 g/dL (32.0-36.0); Mean Corpuscular Hemoglobin 28.7 pg (27.0-31.0); Mean Corpuscular Volume 86.4 fL (78.0-98.0); Mean Platelet Volume 9.5 fL (7.4-10.4); Platelet Count 257 thou/uL (130-400); RBC Distribution Width 13.3 % (11.5-14.5); Red Blood Cell (RBC) Count 3.82 mill/uL (4.70-6.10)
[2020-07-21 04:47] LABS: Anion Gap 14 mmol/L (10-20); BUN (Urea Nitrogen) 37 mg/dL (8.4-25.7); Calc. Creatinine Clearance 49 mL/min (70-130); Calcium 8.4 mg/dL (7.8-10.44); Carbon Dioxide 25 mmol/L (23-31); Chloride 98 mmol/L (98-107); Glucose 120 mg/dL (80-115); Potassium 3.8 mmol/L (3.5-5.1); Sodium 133 mmol/L (136-145)
[2020-07-21] MEDS: Furosemide 40 MG TAB PO SCH (08:59)
[2020-07-21] MEDS: Amiodarone 200 MG TAB PO SCH ×2 (08:59→20:14)
[2020-07-21] MEDS: Carvedilol 6.25 MG TAB PO SCH ×2 (09:00→20:12)
[2020-07-21] MEDS: Aspirin Chewable 81 MG TAB PO SCH (09:00)
[2020-07-21] MEDS: Cholecalciferol 1,000 UNITS (25 MCG) TAB PO SCH (09:01)
[2020-07-21] MEDS: Gabapentin 300 MG CAP PO SCH (09:01)
[2020-07-21] MEDS: Fish Oil 1,000 MG CAP PO SCH (09:01)
[2020-07-21] MEDS: Cyanocobalamin (Vitamin B-12) 1,000 MCG TAB PO SCH (09:02)
[2020-07-21] MEDS: Atorvastatin Calcium 40 MG TAB PO SCH (20:14)
[2020-07-21] MEDS ORDERED: Carvedilol 25 MG TAB PO SCH ×2 (20:15→21:00)
[2020-07-22 05:22] LABS: Anion Gap 12 mmol/L (10-20); BUN (Urea Nitrogen) 34 mg/dL (8.4-25.7); Calc. Creatinine Clearance 48 mL/min (70-130); Calcium 8.5 mg/dL (7.8-10.44); Carbon Dioxide 28 mmol/L (23-31); Chloride 99 mmol/L (98-107); Glucose 115 mg/dL (80-115); Potassium 3.9 mmol/L (3.5-5.1); Sodium 135 mmol/L (136-145)
[2020-07-22] MEDS: Furosemide 40 MG TAB PO SCH (08:37)
[2020-07-22] MEDS: Amiodarone 200 MG TAB PO SCH (08:38)
[2020-07-22] MEDS: Cholecalciferol 1,000 UNITS (25 MCG) TAB PO SCH (08:39)
[2020-07-22] MEDS: Cyanocobalamin (Vitamin B-12) 1,000 MCG TAB PO SCH (08:39)
[2020-07-22] MEDS: Aspirin Chewable 81 MG TAB PO SCH (08:39)
[2020-07-22] MEDS: Gabapentin 300 MG CAP PO SCH (08:43)
[2020-07-22] MEDS: Fish Oil 1,000 MG CAP PO SCH (08:43)
[2020-07-22] MEDS ORDERED: Digoxin 0.125 MG TAB PO SCH (09:00)
[2020-07-22] MEDS ORDERED: Carvedilol 25 MG TAB PO SCH (09:00)
[2020-07-22 11:19] VITALS: TEMP 98.6
[2020-07-22 12:10] VITALS: BP 140/74
[2020-07-22] MEDS ORDERED: Apixaban 5 MG TAB PO SCH (21:00)
[2020-07-29 14:59] LABS: Actual Bicarbonate (HCO3a) 22.5 mEq/L (22-28); Analyzer IN Cardio OR; Base Excess (BEa) -2.7 mEq/L (-2.0 to +3.0); CO2 Tension 40.6 mmHg (35.0-45.0); Calcium, Ionized (arterial) 1.13 mmol/L (1.12-1.30); Carboxyhemoglobin (COHb) 0.9 gm% (0.0-3.0); Hemoglobin (Hb) 13.9 g/dL (14.0-18.0); O2 Tension (PaO2), arterial 98.2 mmHg (> 80.0); Potassium - ABG Lab 4.12 mmol/L (3.70-5.30); pH, Arterial 7.36 (7.35-7.45)
[2020-07-29 15:00] LABS: Actual Bicarbonate (HCO3a) 23.3 mEq/L (22-28); Analyzer IN Cardio OR; Base Excess (BEa) -3.1 mEq/L (-2.0 to +3.0); CO2 Tension 46.8 mmHg (35.0-45.0); Calcium, Ionized (arterial) 1.12 mmol/L (1.12-1.30); Carboxyhemoglobin (COHb) 1.1 gm% (0.0-3.0); Hemoglobin (Hb) 13.3 g/dL (14.0-18.0); O2 Tension (PaO2), arterial 93.5 mmHg (> 80.0); pH, Arterial 7.32 (7.35-7.45)
[2020-07-29 15:00] LABS: Actual Bicarbonate (HCO3a) 22.1 mEq/L (22-28); Analyzer IN Cardio OR; Base Excess (BEa) -4.3 mEq/L (-2.0 to +3.0); CO2 Tension 46.1 mmHg (35.0-45.0); Carboxyhemoglobin (COHb) 0.3 gm% (0.0-3.0); Hemoglobin (Hb) 11.8 g/dL (14.0-18.0); O2 Tension (PaO2), arterial 204.7 mmHg (> 80.0); Potassium - ABG Lab 4.63 mmol/L (3.70-5.30)
[2020-07-29 15:01] LABS: Actual Bicarbonate (HCO3a) 24.8 mEq/L (22-28); Analyzer IN Cardio OR; CO2 Tension 40.9 mmHg (35.0-45.0); Calcium, Ionized (arterial) 1.02 mmol/L (1.12-1.30); Carboxyhemoglobin (COHb) 0.4 gm% (0.0-3.0); Hemoglobin (Hb) 11.1 g/dL (14.0-18.0); O2 Tension (PaO2), arterial 337.3 mmHg (> 80.0); Potassium - ABG Lab 6.34 mmol/L (3.70-5.30)
[2020-07-29 15:03] LABS: Actual Bicarbonate (HCO3a) 23.8 mEq/L (22-28); Analyzer IN Cardio OR; Base Excess (BEa) -1.3 mEq/L (-2.0 to +3.0); CO2 Tension 41.5 mmHg (35.0-45.0); Calcium, Ionized (arterial) 0.98 mmol/L (1.12-1.30); Carboxyhemoglobin (COHb) 0.3 gm% (0.0-3.0); O2 Tension (PaO2), arterial 466.4 mmHg (> 80.0); Potassium - ABG Lab 6.87 mmol/L (3.70-5.30); pH, Arterial 7.38 (7.35-7.45)
[2020-07-29 15:04] LABS: Actual Bicarbonate (HCO3a) 21.1 mEq/L (22-28); Analyzer IN Cardio OR; Base Excess (BEa) -4.5 mEq/L (-2.0 to +3.0); Calcium, Ionized (arterial) 1.08 mmol/L (1.12-1.30); Carboxyhemoglobin (COHb) 0.4 gm% (0.0-3.0); Hemoglobin (Hb) 12.1 g/dL (14.0-18.0); O2 Tension (PaO2), arterial 498.8 mmHg (> 80.0); Potassium - ABG Lab 6.23 mmol/L (3.70-5.30); pH, Arterial 7.33 (7.35-7.45)
[2020-07-29 15:04] LABS: Actual Bicarbonate (HCO3a) 22.4 mEq/L (22-28); Analyzer IN Cardio OR; CO2 Tension 41.5 mmHg (35.0-45.0); Calcium, Ionized (arterial) 1.11 mmol/L (1.12-1.30); Carboxyhemoglobin (COHb) 0.5 gm% (0.0-3.0); O2 Tension (PaO2), arterial 72.2 mmHg (> 80.0); Potassium - ABG Lab 6.44 mmol/L (3.70-5.30); pH, Arterial 7.35 (7.35-7.45)
[2020-07-29 15:10] LABS: Puncture Site Arterial Line
[2020-07-29 15:11] LABS: Puncture Site Arterial Line
[2020-07-29 15:11] LABS: Puncture Site Arterial Line
[2020-07-29 15:12] LABS: Puncture Site Arterial Line
[2020-07-29 15:12] LABS: Puncture Site Arterial Line
[2020-07-29 15:13] LABS: Puncture Site Arterial Line
[2020-07-29 15:13] LABS: Puncture Site Arterial Line
[2020-07-30] MEDS ORDERED: Amiodarone 200 MG TAB PO SCH (09:00)
== END 2020-07-22 14:36 | disposition home or self-care (01) | DRG 234 ==
LOC: ERS 22:01 → 2NO 07-12 00:40 → CCU 07-16 09:29 → 2NO 07-17 23:48
PROVIDERS: ADMIT Internal Medicine; ATTEND Internal Medicine
PROC: 4A023N7 Measurement of Cardiac Sampling and Pressure, Left Heart, Percutaneous Approach (ICD-10-PCS; 2020-07-12)
PROC: B2111ZZ Fluoroscopy of Multiple Coronary Arteries using Low Osmolar Contrast (ICD-10-PCS; 2020-07-12)
PROC: 02100Z9 Bypass Coronary Artery, One Artery from Left Internal Mammary, Open Approach (ICD-10-PCS; principal; 2020-07-16)
PROC: 021209W Bypass Coronary Artery, Three Arteries from Aorta with Autologous Venous Tissue, Open Approach (ICD-10-PCS; 2020-07-16)
PROC: 06BQ4ZZ Excision of Left Saphenous Vein, Percutaneous Endoscopic Approach (ICD-10-PCS; 2020-07-16)
PROC: 5A1221Z Performance of Cardiac Output, Continuous (ICD-10-PCS; 2020-07-16)
DX: I21.4 Non-ST elevation (NSTEMI) myocardial infarction (principal); N17.9 Acute kidney failure, unspecified; I48.3 Typical atrial flutter; E87.1 Hypo-osmolality and hyponatremia; I12.9 Hypertensive chronic kidney disease with stage 1 through stage 4 chronic kidney disease, or unspecified chronic kidney disease; K21.9 Gastro-esophageal reflux disease without esophagitis; I16.0 Hypertensive urgency; M10.9 Gout, unspecified; D72.829 Elevated white blood cell count, unspecified; G89.4 Chronic pain syndrome; E66.9 Obesity, unspecified; E78.5 Hyperlipidemia, unspecified; E87.8 Other disorders of electrolyte and fluid balance, not elsewhere classified; Z20.822 Contact with and (suspected) exposure to COVID-19; I25.110 Atherosclerotic heart disease of native coronary artery with unstable angina pectoris; N18.30 Chronic kidney disease, stage 3 unspecified; G44.40 Drug-induced headache, not elsewhere classified, not intractable; E87.5 Hyperkalemia; I48.0 Paroxysmal atrial fibrillation; E88.09 Other disorders of plasma-protein metabolism, not elsewhere classified; T46.3X5A Adverse effect of coronary vasodilators, initial encounter; Z79.82 Long term (current) use of aspirin; Z87.891 Personal history of nicotine dependence; Z68.33 Body mass index [BMI] 33.0-33.9, adult
CPT/HCPCS: 36415; 36416; 36430; 71045; 76942; 80048; 80053; 80061; 80076; 81003; 81015; 82553; 82805; 83690; 83735; 83880; 84443; 84484; 85025; 85347; 85610; 85730; 86850; 86900; 86901; 87635; 93005; 93010; 93306; 93458; 93798; 96365; 96376; 99152; 99153; J0153; J0171; J0282; J0360; J0690; J1100; J1160; J1642; J1644; J1815; J1885; J2001; J2150; J2250; J2270; J2405; J2440; J3010; J3370; J3475; J3480; J3490; J7070; P9045; Q9967; S0017; S0020; S0028; U0003; U0005

== ENCOUNTER 2020-07-25 19:14 | Inpatient (IN) | payer MEDICARE, OTHER ==
[2020-07-25 20:13] LABS: #Eosinphils 0.1 thou/uL (0.0-0.7); #Lymphocytes 1.2 thou/uL (1.20-3.40); #Monocytes 1.7 thou/uL (0.11-0.59); #Neutrophils 13.7 thou/uL (1.40-6.50); %Basophils 0.3 % (0.0-1.0); %Eosinophils 0.6 % (0.0-10.0); %Monocytes 10.4 % (0.0-10.0); %Neutrophils 81.8 % (42.0-75.0); Hemoglobin 11.6 g/dL (14.0-18.0); Mean Corpuscular Hemoglobin 27.4 pg (27.0-31.0); Mean Corpuscular Volume 85.6 fL (78.0-98.0); Mean Platelet Volume 9.3 fL (7.4-10.4); Platelet Count 372 thou/uL (130-400); RBC Distribution Width 13.3 % (11.5-14.5); Red Blood Cell (RBC) Count 4.23 mill/uL (4.70-6.10); White Blood Cell (WBC) Count 16.7 thou/uL (4.8-10.8)
[2020-07-25 20:33] LABS: ALT (SGPT) 65 U/L (8-55); AST (SGOT) 53 U/L (5-34); Albumin 3.1 g/dL (3.4-4.8); Alkaline Phosphatase 217 U/L (40-110); Anion Gap 13 mmol/L (10-20); BUN (Urea Nitrogen) 39 mg/dL (8.4-25.7); Bilirubin, Total 0.9 mg/dL (0.2-1.2); Calc. Creatinine Clearance 0 mL/min (70-130); Calcium 8.5 mg/dL (7.8-10.44); Carbon Dioxide 29 mmol/L (23-31); Chloride 95 mmol/L (98-107); Globulin 3.1 g/dL (2.4-3.5); Glucose 152 mg/dL (80-115); Potassium 4.5 mmol/L (3.5-5.1); Protein, Total 6.2 g/dL (5.8-8.1); Sodium 132 mmol/L (136-145)
[2020-07-25] MEDS ORDERED: Vancomycin 1 GM/200 ML BAG ONE (20:38)
[2020-07-25] MEDS ORDERED: cefTRIAXone\\ROCEPHIN 2 GM VIAL ONE (20:38)
[2020-07-25 21:06] LABS: Bilirubin Negative (Negative); Blood, Urine Trace (Negative); Clarity Clear (Clear); Glucose, Urine (Dipstick) Normal (Negative); Ketone, Urine Negative (Negative); Leukocyte Negative Leu/uL (Negative); Nitrite Negative (Negative); Protein, Urine (Dipstick) 30 mg/dL (Neg-Trace); RBC/HPF 0-3 HPF (0-3); Specific Gravity, Urine 1.018 (1.002-1.036); Squamous Epithelial 0-3 HPF (0-3); Urobilinogen Normal mg/dL (Less than 2); pH, Urine 5.5 (5.0-9.0)
[2020-07-25 21:07] LABS: Bacteria/HPF 1+ HPF (None Seen)
[2020-07-25] MEDS ORDERED: Morphine 4 MG/ML VIAL ONE (21:46)
[2020-07-25] MEDS ORDERED: Carvedilol 25 MG TAB PO SCH (22:00)
[2020-07-25] MEDS ORDERED: Atorvastatin Calcium 40 MG TAB PO SCH (22:00)
[2020-07-25] MEDS ORDERED: Apixaban 5 MG TAB PO SCH (22:00)
[2020-07-25] MEDS ORDERED: Amiodarone 200 MG TAB PO SCH (22:00)
[2020-07-26] MEDS ORDERED: Ondansetron PF 4 MG/2 ML Vial IVP PRN (00:39)
[2020-07-26] MEDS ORDERED: Acetaminophen 325 MG TAB PO PRN (00:39)
[2020-07-26 01:48] LABS: #Eosinphils 0.2 thou/uL (0.0-0.7); #Lymphocytes 1.1 thou/uL (1.20-3.40); #Monocytes 1.1 thou/uL (0.11-0.59); #Neutrophils 10.7 thou/uL (1.40-6.50); %Basophils 0.3 % (0.0-1.0); %Eosinophils 1.5 % (0.0-10.0); %Lymphocytes 8.2 % (21.0-51.0); %Monocytes 8.1 % (0.0-10.0); %Neutrophils 81.8 % (42.0-75.0); Hemoglobin 10.8 g/dL (14.0-18.0); Mean Corpuscular HGB CONC 33.3 g/dL (32.0-36.0); Mean Corpuscular Hemoglobin 28.5 pg (27.0-31.0); Mean Corpuscular Volume 85.4 fL (78.0-98.0); Mean Platelet Volume 9.2 fL (7.4-10.4); Platelet Count 305 thou/uL (130-400); RBC Distribution Width 13.2 % (11.5-14.5); Red Blood Cell (RBC) Count 3.81 mill/uL (4.70-6.10); White Blood Cell (WBC) Count 13.1 thou/uL (4.8-10.8)
[2020-07-26 02:15] LABS: Anion Gap 14 mmol/L (10-20); BUN (Urea Nitrogen) 36 mg/dL (8.4-25.7); Calc. Creatinine Clearance 0 mL/min (70-130); Calcium 7.9 mg/dL (7.8-10.44); Carbon Dioxide 24 mmol/L (23-31); Chloride 97 mmol/L (98-107); Glucose 121 mg/dL (80-115); Potassium 4.1 mmol/L (3.5-5.1); Sodium 131 mmol/L (136-145)
[2020-07-26 02:17] LABS: ALT (SGPT) 54 U/L (8-55); AST (SGOT) 37 U/L (5-34); Albumin 2.6 g/dL (3.4-4.8); Alkaline Phosphatase 179 U/L (40-110); Bilirubin, Direct 0.5 mg/dL (0.1-0.3); Bilirubin, Total 0.7 mg/dL (0.2-1.2); Protein, Total 5.3 g/dL (5.8-8.1)
[2020-07-26 03:21] LABS: Digoxin 0.68 ng/mL (0.8-2.0)
[2020-07-26] MEDS ORDERED: Aspirin Chewable 81 MG TAB ONE (08:36)
[2020-07-26] MEDS ORDERED: Gabapentin 300 MG CAP PO SCH (09:30)
[2020-07-26] MEDS ORDERED: Allopurinol 300 MG TAB PO SCH (09:30)
[2020-07-26] MEDS: Carvedilol 25 MG TAB PO SCH ×2 (09:38→17:41)
[2020-07-26] MEDS: Aspirin 81 mg Enteric Coated Tablet PO SCH (09:38)
[2020-07-26] MEDS: Amiodarone 200 MG TAB PO SCH ×2 (09:38→20:28)
[2020-07-26] MEDS: Apixaban 5 MG TAB PO SCH ×2 (09:38→20:29)
[2020-07-26] MEDS ORDERED: Digoxin 0.125 MG TAB PO SCH (09:45)
[2020-07-26] MEDS ORDERED: Vancomycin 1 GM in Premix Bag 1 BAG IVPB SCH (09:45)
[2020-07-26] MEDS: Sodium Chloride 0.9% 1,000 ML IV SCH (10:06)
[2020-07-26 10:33] LABS: CKMB 0.7 ng/mL (0-6.6)
[2020-07-26] MEDS ORDERED: Digoxin 0.125 MG TAB ONE (11:08)
[2020-07-26 13:41] LABS: CKMB 0.7 ng/mL (0-6.6)
[2020-07-26 16:29] VITALS: BMI 33.3
[2020-07-26] MEDS ORDERED: VANCOMYCIN 1.25 GM/250 ML BAG 1.25 GM in Premix Bag 1 BAG IVPB SCH (18:00)
[2020-07-26] MEDS: Atorvastatin Calcium 40 MG TAB PO SCH (20:29)
[2020-07-27] MEDS: Sodium Chloride 0.9% 1,000 ML IV SCH (02:07)
[2020-07-27 06:54] LABS: #Eosinphils 0.3 thou/uL (0.0-0.7); #Monocytes 1.1 thou/uL (0.11-0.59); #Neutrophils 10.2 thou/uL (1.40-6.50); %Basophils 0.4 % (0.0-1.0); %Eosinophils 2.1 % (0.0-10.0); %Lymphocytes 8.2 % (21.0-51.0); %Monocytes 8.8 % (0.0-10.0); %Neutrophils 80.5 % (42.0-75.0); Hemoglobin 9.9 g/dL (14.0-18.0); Mean Corpuscular HGB CONC 31.7 g/dL (32.0-36.0); Mean Corpuscular Hemoglobin 27.4 pg (27.0-31.0); Mean Corpuscular Volume 86.4 fL (78.0-98.0); Mean Platelet Volume 9.2 fL (7.4-10.4); Platelet Count 314 thou/uL (130-400); RBC Distribution Width 13.1 % (11.5-14.5); White Blood Cell (WBC) Count 12.6 thou/uL (4.8-10.8)
[2020-07-27 07:17] LABS: Anion Gap 15 mmol/L (10-20); BUN (Urea Nitrogen) 35 mg/dL (8.4-25.7); Calc. Creatinine Clearance 42 mL/min (70-130); Calcium 8.1 mg/dL (7.8-10.44); Carbon Dioxide 25 mmol/L (23-31); Chloride 99 mmol/L (98-107); Glucose 120 mg/dL (80-115); Potassium 3.9 mmol/L (3.5-5.1); Sodium 135 mmol/L (136-145)
[2020-07-27 07:18] LABS: ALT (SGPT) 48 U/L (8-55); AST (SGOT) 29 U/L (5-34); Albumin 2.6 g/dL (3.4-4.8); Alkaline Phosphatase 174 U/L (40-110); Bilirubin, Direct 0.5 mg/dL (0.1-0.3); Bilirubin, Total 0.8 mg/dL (0.2-1.2); Protein, Total 5.4 g/dL (5.8-8.1)
[2020-07-27] MEDS: Amiodarone 200 MG TAB PO SCH ×2 (09:49→20:55)
[2020-07-27] MEDS: Allopurinol 300 MG TAB PO SCH (09:49)
[2020-07-27] MEDS: Apixaban 5 MG TAB PO SCH ×2 (09:50→20:55)
[2020-07-27] MEDS: Carvedilol 25 MG TAB PO SCH ×2 (09:50→16:57)
[2020-07-27] MEDS: cefTRIAXone\\ROCEPHIN 1 GM in Sodium Chloride 0.9% 100 ML IVPB SCH (09:50)
[2020-07-27] MEDS: Aspirin 81 mg Enteric Coated Tablet PO SCH (09:50)
[2020-07-27] MEDS: Gabapentin 300 MG CAP PO SCH (09:50)
[2020-07-27] MEDS ORDERED: Vancomycin 1 GM in Premix Bag 1 BAG IVPB SCH (15:00)
[2020-07-27 17:14] LABS: Vancomycin, Random 11.3 ug/mL (See Comment)
[2020-07-27] MEDS ORDERED: VANCOMYCIN 1.25 GM/250 ML BAG 1.25 GM in Premix Bag 1 BAG IVPB SCH (18:00)
[2020-07-27] MEDS: Vancomycin 1.5 GRAM/300 ML BAG 1.5 GM in Premix Bag 1 BAG IVPB SCH (20:55)
[2020-07-27] MEDS: Atorvastatin Calcium 40 MG TAB PO SCH (20:55)
[2020-07-28 04:26] LABS: #Eosinphils 0.3 thou/uL (0.0-0.7); #Lymphocytes 1.1 thou/uL (1.20-3.40); #Monocytes 1.3 thou/uL (0.11-0.59); %Basophils 0.4 % (0.0-1.0); %Eosinophils 2.3 % (0.0-10.0); %Lymphocytes 8.9 % (21.0-51.0); %Monocytes 10.1 % (0.0-10.0); %Neutrophils 78.3 % (42.0-75.0); Hemoglobin 9.8 g/dL (14.0-18.0); Mean Corpuscular HGB CONC 30.4 g/dL (32.0-36.0); Mean Corpuscular Hemoglobin 26.2 pg (27.0-31.0); Mean Corpuscular Volume 86.5 fL (78.0-98.0); Mean Platelet Volume 9.4 fL (7.4-10.4); Platelet Count 344 thou/uL (130-400); RBC Distribution Width 13.4 % (11.5-14.5); Red Blood Cell (RBC) Count 3.75 mill/uL (4.70-6.10); White Blood Cell (WBC) Count 12.7 thou/uL (4.8-10.8)
[2020-07-28 04:51] LABS: Anion Gap 13 mmol/L (10-20); BUN (Urea Nitrogen) 32 mg/dL (8.4-25.7); Calc. Creatinine Clearance 45 mL/min (70-130); Calcium 8.1 mg/dL (7.8-10.44); Carbon Dioxide 24 mmol/L (23-31); Chloride 100 mmol/L (98-107); Glucose 106 mg/dL (80-115); Iron 13 ug/dL (65-175); Potassium 4.1 mmol/L (3.5-5.1); Sodium 133 mmol/L (136-145)
[2020-07-28 05:16] LABS: Ferritin 1376.29 ng/mL (22-322)
[2020-07-28] MEDS: Furosemide 40 MG TAB PO SCH (08:53)
[2020-07-28] MEDS: Allopurinol 300 MG TAB PO SCH (08:53)
[2020-07-28] MEDS: Carvedilol 25 MG TAB PO SCH ×2 (08:53→15:40)
[2020-07-28] MEDS: Amiodarone 200 MG TAB PO SCH ×2 (08:54→21:32)
[2020-07-28] MEDS: Gabapentin 300 MG CAP PO SCH (08:54)
[2020-07-28] MEDS: cefTRIAXone\\ROCEPHIN 1 GM in Sodium Chloride 0.9% 100 ML IVPB SCH (08:54)
[2020-07-28] MEDS: Apixaban 5 MG TAB PO SCH ×2 (08:54→21:32)
[2020-07-28] MEDS: Aspirin 81 mg Enteric Coated Tablet PO SCH (08:54)
[2020-07-28] MEDS ORDERED: GUAIFENESIN SF SOLN 200 MG/10 ML UDCUP PO PRN (15:49)
[2020-07-28] MEDS ORDERED: Loratadine 10 MG TAB PO PRN (15:49)
[2020-07-28] MEDS ORDERED: Cepastat Lozenges 1 LOZ PO PRN (15:49)
[2020-07-28] MEDS: Vancomycin 1.5 GRAM/300 ML BAG 1.5 GM in Premix Bag 1 BAG IVPB SCH (21:31)
[2020-07-28] MEDS: Atorvastatin Calcium 40 MG TAB PO SCH (21:32)
[2020-07-29 05:00] LABS: #Basophils 0.1 thou/uL (0.0-0.2); #Eosinphils 0.3 thou/uL (0.0-0.7); #Lymphocytes 1.2 thou/uL (1.20-3.40); #Monocytes 1.4 thou/uL (0.11-0.59); %Basophils 0.5 % (0.0-1.0); %Eosinophils 2.3 % (0.0-10.0); %Lymphocytes 8.6 % (21.0-51.0); %Monocytes 9.9 % (0.0-10.0); %Neutrophils 78.7 % (42.0-75.0); Hemoglobin 9.5 g/dL (14.0-18.0); Mean Corpuscular HGB CONC 31.2 g/dL (32.0-36.0); Mean Corpuscular Hemoglobin 26.9 pg (27.0-31.0); Mean Corpuscular Volume 86.2 fL (78.0-98.0); Mean Platelet Volume 9.3 fL (7.4-10.4); Platelet Count 390 thou/uL (130-400); RBC Distribution Width 13.4 % (11.5-14.5); Red Blood Cell (RBC) Count 3.53 mill/uL (4.70-6.10)
[2020-07-29 05:24] LABS: Anion Gap 10 mmol/L (10-20); BUN (Urea Nitrogen) 31 mg/dL (8.4-25.7); Calc. Creatinine Clearance 43 mL/min (70-130); Carbon Dioxide 28 mmol/L (23-31); Chloride 101 mmol/L (98-107); Glucose 118 mg/dL (80-115); Potassium 4.2 mmol/L (3.5-5.1); Sodium 135 mmol/L (136-145)
[2020-07-29] MEDS: Amiodarone 200 MG TAB PO SCH ×2 (09:40→21:41)
[2020-07-29] MEDS: Apixaban 5 MG TAB PO SCH ×2 (09:40→21:42)
[2020-07-29] MEDS: Gabapentin 300 MG CAP PO SCH (09:40)
[2020-07-29] MEDS: Senokot S 8.6-50 MG TAB PO SCH ×2 (09:41→21:41)
[2020-07-29] MEDS: Allopurinol 300 MG TAB PO SCH (09:41)
[2020-07-29] MEDS: Carvedilol 25 MG TAB PO SCH ×2 (09:41→17:24)
[2020-07-29] MEDS: Aspirin 81 mg Enteric Coated Tablet PO SCH (09:41)
[2020-07-29] MEDS: Furosemide 40 MG TAB PO SCH (09:41)
[2020-07-29] MEDS: Digoxin 0.125 MG TAB PO SCH (09:42)
[2020-07-29] MEDS: Ferrous Sulfate 325 MG TAB PO SCH (09:42)
[2020-07-29] MEDS: cefTRIAXone\\ROCEPHIN 1 GM in Sodium Chloride 0.9% 100 ML IVPB SCH (09:56)
[2020-07-29 20:09] LABS: Vancomycin, Trough 17.8 ug/mL
[2020-07-29] MEDS: Vancomycin 1.5 GRAM/300 ML BAG 1.5 GM in Premix Bag 1 BAG IVPB SCH (21:40)
[2020-07-29] MEDS: Atorvastatin Calcium 40 MG TAB PO SCH (21:42)
[2020-07-30] MEDS: Carvedilol 25 MG TAB PO SCH ×2 (08:55→19:25)
[2020-07-30] MEDS: Furosemide 40 MG TAB PO SCH (08:55)
[2020-07-30] MEDS: Ferrous Sulfate 325 MG TAB PO SCH (08:55)
[2020-07-30] MEDS: Allopurinol 300 MG TAB PO SCH (08:55)
[2020-07-30] MEDS: Apixaban 5 MG TAB PO SCH ×2 (08:55→21:35)
[2020-07-30] MEDS: Amiodarone 200 MG TAB PO SCH ×2 (08:55→21:34)
[2020-07-30] MEDS: Aspirin 81 mg Enteric Coated Tablet PO SCH (08:56)
[2020-07-30] MEDS: Gabapentin 300 MG CAP PO SCH (08:56)
[2020-07-30] MEDS: Senokot S 8.6-50 MG TAB PO SCH ×2 (08:57→21:35)
[2020-07-30] MEDS: cefTRIAXone\\ROCEPHIN 1 GM in Sodium Chloride 0.9% 100 ML IVPB SCH (08:57)
[2020-07-30] MEDS: Vancomycin 1.5 GRAM/300 ML BAG 1.5 GM in Premix Bag 1 BAG IVPB SCH (21:34)
[2020-07-30] MEDS: Atorvastatin Calcium 40 MG TAB PO SCH (21:35)
[2020-07-31] MEDS: Amiodarone 200 MG TAB PO SCH (08:30)
[2020-07-31] MEDS: Allopurinol 300 MG TAB PO SCH (08:31)
[2020-07-31] MEDS: Ferrous Sulfate 325 MG TAB PO SCH (08:31)
[2020-07-31] MEDS: Furosemide 40 MG TAB PO SCH (08:31)
[2020-07-31] MEDS: Digoxin 0.125 MG TAB PO SCH (08:31)
[2020-07-31] MEDS: Gabapentin 300 MG CAP PO SCH (08:31)
[2020-07-31] MEDS: Apixaban 5 MG TAB PO SCH (08:31)
[2020-07-31] MEDS: Carvedilol 25 MG TAB PO SCH (08:31)
[2020-07-31] MEDS: Aspirin 81 mg Enteric Coated Tablet PO SCH (08:31)
[2020-07-31] MEDS: Senokot S 8.6-50 MG TAB PO SCH ×2 (08:32→08:35)
[2020-07-31] MEDS: cefTRIAXone\\ROCEPHIN 1 GM in Sodium Chloride 0.9% 100 ML IVPB SCH (08:35)
[2020-07-31 12:07] VITALS: BP 144/66; TEMP 98
== END 2020-07-31 14:20 | disposition home or self-care (01) | DRG 863 ==
LOC: ERS 19:14 → ERHOLD 22:13 → OBSVTOIN 07-26 01:01 → 2NO 07-26 15:07
PROVIDERS: ADMIT Internal Medicine; ATTEND Internal Medicine
DX: T81.49XA Infection following a procedure, other surgical site, initial encounter (principal); L03.116 Cellulitis of left lower limb; N17.9 Acute kidney failure, unspecified; E87.1 Hypo-osmolality and hyponatremia; N39.0 Urinary tract infection, site not specified; N18.4 Chronic kidney disease, stage 4 (severe); I25.10 Atherosclerotic heart disease of native coronary artery without angina pectoris; I48.0 Paroxysmal atrial fibrillation; I12.9 Hypertensive chronic kidney disease with stage 1 through stage 4 chronic kidney disease, or unspecified chronic kidney disease; K21.9 Gastro-esophageal reflux disease without esophagitis; M10.9 Gout, unspecified; R77.8 Other specified abnormalities of plasma proteins; R74.8 Abnormal levels of other serum enzymes; D63.1 Anemia in chronic kidney disease; B95.2 Enterococcus as the cause of diseases classified elsewhere; Z95.1 Presence of aortocoronary bypass graft; Z79.01 Long term (current) use of anticoagulants; Z79.82 Long term (current) use of aspirin; Z79.899 Other long term (current) drug therapy; Z87.891 Personal history of nicotine dependence; I25.2 Old myocardial infarction; Y83.8 Other surgical procedures as the cause of abnormal reaction of the patient, or of later complication, without mention of misadventure at the time of the procedure
CPT/HCPCS: 36415; 71045; 80048; 80053; 80076; 80162; 80202; 81003; 81015; 82274; 82553; 82607; 82728; 82746; 83540; 83735; 84146; 84484; 85025; 87040; 87070; 87077; 87086; 87186; 87205; 93005; 96365; 96367; 96375; G0378; J0696; J2270; J3370; J3490

== ENCOUNTER 2021-08-16 20:17 | Emergency (ER) | payer MEDICARE, OTHER | END 2021-08-16 22:20 | disposition home or self-care (01) | LOC: ERS 20:17 | DX: S50.11XA Contusion of right forearm, initial encounter (principal); I10 Essential (primary) hypertension; K21.9 Gastro-esophageal reflux disease without esophagitis; M10.9 Gout, unspecified; Z79.01 Long term (current) use of anticoagulants; Z79.899 Other long term (current) drug therapy; X58.XXXA Exposure to other specified factors, initial encounter ==

== ENCOUNTER 2023-07-19 08:05 | Inpatient (IN) | payer MEDICARE, OTHER ==
[2023-07-15 08:51] VITALS: BMI 31.6
[2023-07-19] MEDS ORDERED: Iopamidol 370 76% 100 ML VIAL ONE (09:04)
[2023-07-19] MEDS ORDERED: Rocuronium Bromide 10 MG/ML (10ML VIAL) ONE (10:22)
[2023-07-19] MEDS ORDERED: Ondansetron PF 4 MG/2 ML Vial ONE (10:22)
[2023-07-19] MEDS ORDERED: PROPOFOL 200 MG/20 ML VIAL ONE (10:22)
[2023-07-19] MEDS ORDERED: Lidocaine 1% PF 5 ML VIAL ONE (10:22)
[2023-07-19] MEDS ORDERED: Dexamethasone 20 MG/5 ML VIAL ONE (10:22)
[2023-07-19] MEDS ORDERED: fentaNYL 50 mcg/mL 1 mL Vial ONE (10:23)
[2023-07-19] MEDS ORDERED: SUGAMMADEX SODIUM 200 MG/2 ML VIAL ONE (10:23)
[2023-07-19] MEDS ORDERED: CEFAZOLIN 2 GM VIAL ONE (10:33)
[2023-07-19] MEDS ORDERED: Heparin 10,000 UNITS/ 10 ML VIAL ONE (10:33)
[2023-07-19] MEDS ORDERED: Protamine Sulfate 50 MG/5 ML VIAL ONE (10:33)
[2023-07-19] MEDS ORDERED: hydrALAZINE 20 MG/ML VIAL ONE (11:52)
== END 2023-07-19 16:20 | disposition home or self-care (01) | DRG 274 ==
LOC: SURG A 08:05
PROVIDERS: ADMIT Internal Medicine Cardiovascular Disease; ATTEND Internal Medicine Cardiovascular Disease
PROC: 02L73DK Occlusion of Left Atrial Appendage with Intraluminal Device, Percutaneous Approach (ICD-10-PCS; principal; 2023-07-19)
PROC: B245ZZ4 Ultrasonography of Left Heart, Transesophageal (ICD-10-PCS; 2023-07-19)
DX: I48.0 Paroxysmal atrial fibrillation (principal); I10 Essential (primary) hypertension; E78.5 Hyperlipidemia, unspecified; I25.10 Atherosclerotic heart disease of native coronary artery without angina pectoris; I73.9 Peripheral vascular disease, unspecified; G89.4 Chronic pain syndrome; F41.9 Anxiety disorder, unspecified; M19.90 Unspecified osteoarthritis, unspecified site; M10.9 Gout, unspecified; F17.200 Nicotine dependence, unspecified, uncomplicated; Z95.1 Presence of aortocoronary bypass graft; I25.2 Old myocardial infarction; Z79.82 Long term (current) use of aspirin; Z79.891 Long term (current) use of opiate analgesic; Z79.899 Other long term (current) drug therapy
CPT/HCPCS: 33340; 85347; 86850; 86900; 86901; 93306; 93312; C1759; C1760; C1894; J0360; J1100; J1644; J2405; J2704; J2720; J3010

== ENCOUNTER 2023-09-29 06:10 | Day surgery (SDC) | payer MEDICARE, OTHER ==
[2023-09-29 07:09] LABS: #Basophils 0.06 10x3/uL (0.0-0.2); %Basophils 0.7 % (0.0-1.0); %Eosinophils 4.7 % (0.0-10.0); %Lymphocytes 22.9 % (21.0-51.0); %Monocytes 12.5 % (0.0-10.0); %Neutrophils 58.8 % (42.0-75.0); Hematocrit 39.6 % (42.0-52.0); Hemoglobin 12.6 g/dL (14.0-18.0); Mean Corpuscular HGB CONC 31.8 g/dL (32.0-36.0); Mean Corpuscular Hemoglobin 28.2 pg (27.0-31.0); Mean Corpuscular Volume 88.6 fL (78.0-98.0); Mean Platelet Volume 11.5 fL (7.4-10.4); Platelet Count 210 10x3/uL (130-400); RBC Distribution Width 15.4 % (11.5-14.5); Red Blood Cell (RBC) Count 4.47 mill/uL (4.70-6.10)
[2023-09-29 07:23] LABS: Anion Gap 10 mmol/L (10-20); BUN (Urea Nitrogen) 24 mg/dL (8.4-25.7); Calc. Creatinine Clearance 0 mL/min (70-130); Calcium 9.2 mg/dL (7.8-10.44); Carbon Dioxide 28 mmol/L (23-31); Chloride 102 mmol/L (98-107); Estimated GFR 18; Glucose 94 mg/dL (83-110); INR-International Normal Ratio 1.3; Potassium 4.3 mmol/L (3.5-5.1); Prothrombin Time 16.4 sec (12.0-14.7); Sodium 136 mmol/L (136-145)
[2023-09-29 07:24] LABS: PTT 38.6 sec (22.9-36.1)
[2023-09-29] MEDS ORDERED: Midazolam HCl 2 mg/2 ml Vial ONE (07:26)
[2023-09-29] MEDS ORDERED: Lidocaine 1% PF 5 ML VIAL ONE (07:42)
[2023-09-29] MEDS ORDERED: PROPOFOL 200 MG/20 ML VIAL ONE (07:42)
[2023-09-29] MEDS ORDERED: EPHEDRINE ONE (07:42)
[2023-09-29] MEDS ORDERED: SODIUM CHLORIDE ONE (07:42)
== END 2023-09-29 09:40 | disposition home or self-care (01) ==
LOC: SDC 06:10
PROVIDERS: ATTEND Internal Medicine Cardiovascular Disease
PROC: B246ZZ4 Ultrasonography of Right and Left Heart, Transesophageal (ICD-10-PCS; principal; 2023-09-29)
DX: I48.0 Paroxysmal atrial fibrillation (principal); Z79.82 Long term (current) use of aspirin
CPT/HCPCS: 80048; 85025; 85610; 85730; 93312; J2250; J2704; 36415